=== PATIENT | male | born 1985 | race Two or more races ===

== ENCOUNTER 2020-01-11 11:25 | Emergency (ER) | payer OTHER ==
[2020-01-11 11:38] VITALS: BP 111/78; PULSE 90; TEMP 99.6; BMI 30.9
== END 2020-01-11 13:34 | disposition home or self-care (01) ==
LOC: JERFT 11:25
DX: M25.251 Flail joint, right hip (principal)
CPT/HCPCS: 73030-TC-LT-FY; 99283-25